=== PATIENT | male | born 1945 | race Caucasian/White ===

== ENCOUNTER 2016-12-27 13:22 | Observation (INO) | payer MEDICARE ==
[~2016-12-27] VITALS: Ht 175.3 cm; Wt 80.6 kg
[2016-12-27] MEDS ORDERED: ASPIRIN 81 MG TABLET CHEW PO ONE (14:30)
[2016-12-27] MEDS ORDERED: ASPIRIN 81 MG TABLET CHEW ONE (14:34)
[2016-12-27 14:38] LABS: ASPARTATE AMINO TRANSFERASE 25 U/L (15-37); BLOOD UREA NITROGEN 14 mg/dL (7-18)
[2016-12-27 14:48] LABS: IS PT STATUS REG ER OR PRE ER? YES
[2016-12-27 14:51] LABS: DIFF TOTAL CELLS COUNTED 100 CELL DIFF
[2016-12-27 14:54] LABS: MONOS WITH VACUOLES 1+; VERIFY COUNTS? YES
[2016-12-27] MEDS ORDERED: GUAIFENESIN/DM 200-20MG, 10ML UDC PO PRN (16:00)
[2016-12-27] MEDS ORDERED: LABETALOL 5MG/ML, 20ML IV PRN (16:00)
[2016-12-27] MEDS ORDERED: ONDANSETRON ODT 4 MG PO PRN (16:00)
[2016-12-27] MEDS ORDERED: ONDANSETRON 2MG/ML, 2ML IVP PRN (16:00)
[2016-12-27] MEDS ORDERED: ENOXAPARIN 40 MG/0.4 ML SQ SCH (16:00)
[2016-12-27] MEDS ORDERED: HYDROcodone/APAP 5/325 TABLET PO PRN (16:00)
[2016-12-27] MEDS ORDERED: POLYETHYLENE GLYCOL 17 GM PACKET PO PRN (16:00)
[2016-12-27] MEDS ORDERED: ASPI-515 PO (16:05)
[2016-12-27 16:17] LABS: IS PT STATUS REG ER OR PRE ER? YES
[2016-12-27 17:29] VITALS: BP 146/63
[2016-12-27 19:18] VITALS: BP 125/68
[2016-12-27 22:42] LABS: IS PT STATUS REG ER OR PRE ER? NO
[2016-12-28 01:45] VITALS: BP 135/78
[2016-12-28] MEDS ORDERED: ASPIRIN 81 MG TABLET EC PO SCH (06:00)
[2016-12-28 06:59] LABS: ASPARTATE AMINO TRANSFERASE 17 U/L (15-37); BLOOD UREA NITROGEN 13 mg/dL (7-18)
[2016-12-28 07:46] LABS: DIFF TOTAL CELLS COUNTED 100 CELL DIFF
[2016-12-28 07:53] VITALS: BP 120/71
[2016-12-28] MEDS ORDERED: REGADENOSON 0.4 MG/5 ML SYRINGE ONE (08:32)
[2016-12-28 08:37] LABS: VERIFY COUNTS? YES
[2016-12-28] MEDS ORDERED: SENNA/DOCUSATE TABLET PO SCH (09:00)
[2016-12-28] MEDS ORDERED: FURO-93 PO (13:56)
[2016-12-28] MEDS ORDERED: CARV3.1212 PO (13:56)
[2016-12-28] MEDS ORDERED: LISI5TAB7 PO (13:56)
[2016-12-28] MEDS ORDERED: ATOR10TA9 PO (13:56)
[2016-12-28] MEDS ORDERED: FUROSEMIDE 40 MG TABLET PO SCH (14:00)
[2016-12-28] MEDS ORDERED: LISINOPRIL 5 MG TABLET PO SCH (14:00)
[2016-12-28] MEDS ORDERED: ATORVASTATIN 10 MG TABLET PO SCH ×2 (14:00→21:00)
[2016-12-28] MEDS ORDERED: CARVEDILOL 3.125 MG TABLET PO SCH ×2 (14:00→18:00)
[2016-12-28 14:21] VITALS: BP 117/72
[2016-12-28] MEDS ORDERED: FUROSEMIDE 20 MG TABLET PO SCH (17:00)
[2016-12-29] MEDS ORDERED: LISINOPRIL 5 MG TABLET PO SCH (09:00)
== END 2016-12-28 16:37 | disposition home or self-care (01) ==
LOC: ED 15:40 → 5SO 16:20
PROVIDERS: ADMIT Internal Medicine; ATTEND Internal Medicine
DX: R07.89 Other chest pain (principal); I50.41 Acute combined systolic (congestive) and diastolic (congestive) heart failure; I25.10 Atherosclerotic heart disease of native coronary artery without angina pectoris; I25.2 Old myocardial infarction; E78.5 Hyperlipidemia, unspecified; D64.9 Anemia, unspecified; E44.1 Mild protein-calorie malnutrition; Z86.73 Personal history of transient ischemic attack (TIA), and cerebral infarction without residual deficits; Z79.82 Long term (current) use of aspirin; Z95.5 Presence of coronary angioplasty implant and graft; Z87.891 Personal history of nicotine dependence
CPT/HCPCS: 36415; 71010; 78452; 80053; 80061; 83605; 83690; 83735; 83880; 84439; 84443; 84484; 85025; 93005; 93017; 93306; 96372; 99285; A9502; C9898; G0378; J1650; J2785